=== PATIENT | male | born 1995 | race Caucasian/White ===

== ENCOUNTER 2020-12-22 14:21 | Emergency (ER) | payer OTHER ==
[~2020-12-22] VITALS: Ht 152.4 cm; Wt 68.0 kg
[2020-12-22 14:30] VITALS: BP 112/74
== END 2020-12-22 15:01 | disposition left against medical advice (07) ==
LOC: M.ERS 14:21
DX: Z53.21 Procedure and treatment not carried out due to patient leaving prior to being seen by health care provider (principal)